=== PATIENT | male | born 1985 | race Caucasian/White ===

== ENCOUNTER 2018-11-04 11:49 | Outpatient (CLI) | payer SELFPAY ==
[2018-11-04 17:52] LABS: HIV (1/2) Antibody/Antigen Non-Reactive (NonReactive); HIV 1/2 INDEX 0.07 S/CO (<1.00); Hep C IgG Ab Non-Reactive (NonReactive); Hep C Index 0.07 S/CO (0-0.79)
[2018-11-04 18:53] LABS: Hep B Surf AB Reactive (NonReactive)
[2018-11-04 18:55] LABS: HBSAB Concentration 3828.09 mIU/mL
[2018-11-07 15:21] LABS: Syphilis Antibody Nonreactive (Nonreactive); Syphilis Antibody Index 0.02 S/CO (<1.00 Non-Reactive)
== END 2018-11-04 11:50 | disposition home or self-care (01) ==
LOC: NAV LAB 11:49
PROVIDERS: ATTEND Nurse Practitioner Family
DX: W46.1XXA Contact with contaminated hypodermic needle, initial encounter (principal)
CPT/HCPCS: 36415; 86593; 86706; 86780; 86803; 87389

== ENCOUNTER 2024-08-04 14:01 | Emergency (ER) | payer SELFPAY ==
[2024-08-04] MEDS ORDERED: Clindamycin/D5W 900 mg/50 ml Premix Bag ONE (15:53)
[2024-08-04 15:54] LABS: #Basophils 0.1 thou/uL (0.0-0.2); #Eosinphils 0.1 thou/uL (0.0-0.7); #Lymphocytes 1.3 thou/uL (1.20-3.40); #Monocytes 0.7 thou/uL (0.11-0.59); #Neutrophils 14.1 thou/uL (1.40-6.50); %Basophils 0.3 % (0.0-1.0); %Eosinophils 0.5 % (0.0-10.0); %Lymphocytes 8.3 % (21.0-51.0); %Neutrophils 86.8 % (42.0-75.0); Hematocrit 49.6 % (42.0-52.0); Hemoglobin 15.1 g/dL (14.0-18.0); Mean Corpuscular HGB CONC 30.5 g/dL (32.0-36.0); Mean Corpuscular Hemoglobin 26.2 pg (27.0-31.0); Mean Platelet Volume 7.2 fL (7.4-10.4); Platelet Count 332 10x3/uL (130-400); RBC Distribution Width 13.8 % (11.5-14.5); Red Blood Cell (RBC) Count 5.77 mill/uL (4.70-6.10); White Blood Cell (WBC) Count 16.2 10x3/uL (4.8-10.8)
[2024-08-04 16:03] LABS: Bilirubin Negative (Negative); Blood, Urine Trace (Negative); Clarity Clear (Clear); Glucose, Urine (Dipstick) >=1000 mg/dL (Negative); Ketone, Urine Negative (Negative); Leukocyte Negative (Negative); Nitrite Negative (Negative); Protein, Urine (Dipstick) Negative (Neg-Trace); Urobilinogen 0.2 mg/dL (Less than 2); pH, Urine 5.5 (5.0-9.0)
[2024-08-04 16:09] LABS: ALT (SGPT) 38 U/L (8-55); AST (SGOT) 21 U/L (5-34); Albumin 3.1 g/dL (3.5-5.0); Alkaline Phosphatase 108 U/L (40-110); Anion Gap 20 mmol/L (10-20); BUN (Urea Nitrogen) 13 mg/dL (8.9-20.6); Bilirubin, Total 0.2 mg/dL (0.2-1.2); CK (CPK) 92 U/L (30-200); Calc. Creatinine Clearance 0 mL/min (70-130); Calcium 10.3 mg/dL (7.8-10.44); Carbon Dioxide 22 mmol/L (22-29); Chloride 96 mmol/L (98-107); Estimated GFR 65; Potassium 4.8 mmol/L (3.5-5.1); Protein, Total 8.1 g/dL (6.0-8.3); Sodium 133 mmol/L (136-145)
[2024-08-04 16:11] LABS: Glucose 545 mg/dL (70-105)
[2024-08-04 16:12] LABS: Amphetamine Detected (NotDetected); Barbiturates Screen Not Detected (NotDetected); Benzodiazepine Screen Not Detected (NotDetected); Cocaine Metabolite Screen Not Detected (NotDetected); Methadone Not Detected (NotDetected); Methamphetamine Detected (NotDetected); Opiate Screen Not Detected (NotDetected); Oxycodone Screen Not Detected (NotDetected); Phencyclidine (PCP) Not Detected (NotDetected); THC/Cannabinoid Screen Detected (NotDetected); Tricyclic Screen Not Detected (NotDetected)
[2024-08-04 16:16] LABS: Specific Gravity, Urine 1.036 (1.002-1.036)
[2024-08-04 16:17] LABS: CAUTI Indications for Culture Dysuria,urgency,freq; Squamous Epithelial 0-3 HPF (0-3); WBC/HPF 0-3 HPF (0-3)
[2024-08-04 16:18] LABS: Urine Culture Reflex No No
[2024-08-04 22:57] LABS: Hemoglobin A1c 11.8 % (4.0-6.0)
== END 2024-08-04 17:33 | disposition left against medical advice (07) ==
LOC: NAV ERS 14:01
DX: L03.116 Cellulitis of left lower limb (principal); I10 Essential (primary) hypertension
CPT/HCPCS: 80053; 80306; 81001; 82010; 82550; 83036; 83605; 83690; 85025; 87040; 96365; J3490

== ENCOUNTER 2025-09-15 21:38 | Emergency (ER) | payer SELFPAY ==
[2025-09-15] MEDS ORDERED: Ibuprofen 200 MG TAB ONE (21:55)
[2025-09-15] MEDS ORDERED: Sulfameth/Trimethoprim DS 800-160mg TAB ONE (21:55)
[2025-09-15] MEDS ORDERED: Amoxicillin/Potassium Clav 875 MG TAB ONE (22:08)
== END 2025-09-15 22:20 | disposition home or self-care (01) ==
LOC: NAV ERS 21:38
DX: L03.114 Cellulitis of left upper limb (principal); I10 Essential (primary) hypertension
CPT/HCPCS: 99282